=== PATIENT | female | born 1935 ===

== ENCOUNTER 2017-12-09 04:06 | Emergency (ER) | payer OTHER ==
[~2017-12-09] VITALS: Ht 167.6 cm; Wt 81.6 kg
[~2017-12-09 04:06] MED LIST: LEVAQUIN250 MG/10; NORFLEX100MG; ULTRAM50 MG
== END 2017-12-09 17:08 | disposition home or self-care (01) ==
LOC: ER 04:06
DX: N39.0 Urinary tract infection, site not specified (principal)

== ENCOUNTER 2018-01-13 15:43 | Inpatient (IN) | payer OTHER ==
[~2018-01-13] VITALS: Ht 160 cm; Wt 67.1 kg
[2018-01-13] MEDS ORDERED: CLORAZEPATE DIP15 MG (17:07)
[2018-01-13] MEDS ORDERED: GLYBURIDE5 MG (17:07)
[2018-01-13] MEDS ORDERED: SYNTHROID75 MCG (17:08)
[2018-01-13] MEDS ORDERED: AVAPRO75 MG (17:08)
[2018-01-13] MEDS ORDERED: CYMBALTA30 MG (17:08)
[2018-01-13] MEDS ORDERED: SIMVASTATIN20 MG (17:09)
[2018-01-13] MEDS ORDERED: ALL DAY ALLERGY10 M3 (17:10)
[2018-01-13] MEDS ORDERED: LEVEMIR100 UNIT/1 (17:10)
[2018-01-13] MEDS ORDERED: RANITIDINE HCL300 M1 (17:11)
== END 2018-02-15 13:59 | disposition other institution (70) | DRG 871 ==
LOC: ER 15:43 → MEDJ 01-14 10:15
PROC: 3E0F7GC Introduction of Other Therapeutic Substance into Respiratory Tract, Via Natural or Artificial Opening (ICD-10-PCS; 2018-01-14)
PROC: 4A033R1 Measurement of Arterial Saturation, Peripheral, Percutaneous Approach (ICD-10-PCS; 2018-01-14)
PROC: B44HZZZ Ultrasonography of Bilateral Lower Extremity Arteries (ICD-10-PCS; 2018-01-14)
PROC: 05H433Z Insertion of Infusion Device into Left Innominate Vein, Percutaneous Approach (ICD-10-PCS; 2018-01-16)
PROC: B246ZZZ Ultrasonography of Right and Left Heart (ICD-10-PCS; 2018-01-18)
PROC: 3E0436Z Introduction of Nutritional Substance into Central Vein, Percutaneous Approach (ICD-10-PCS; 2018-01-18)
PROC: BW25YZZ Computerized Tomography (CT Scan) of Chest, Abdomen and Pelvis using Other Contrast (ICD-10-PCS; 2018-01-22)
PROC: B44HZZZ Ultrasonography of Bilateral Lower Extremity Arteries (ICD-10-PCS; 2018-01-23)
PROC: 0DH63UZ Insertion of Feeding Device into Stomach, Percutaneous Approach (ICD-10-PCS; principal; 2018-02-01)
DX: A41.9 Sepsis, unspecified organism (principal); J18.9 Pneumonia, unspecified organism; J69.0 Pneumonitis due to inhalation of food and vomit; J45.41 Moderate persistent asthma with (acute) exacerbation; J98.11 Atelectasis; J44.1 Chronic obstructive pulmonary disease with (acute) exacerbation; J44.0 Chronic obstructive pulmonary disease with (acute) lower respiratory infection; B37.49 Other urogenital candidiasis; J90 Pleural effusion, not elsewhere classified; B37.0 Candidal stomatitis; R09.02 Hypoxemia; J20.9 Acute bronchitis, unspecified; E11.65 Type 2 diabetes mellitus with hyperglycemia; Z79.4 Long term (current) use of insulin; I10 Essential (primary) hypertension; Z74.01 Bed confinement status; E03.8 Other specified hypothyroidism; R13.19 Other dysphagia; F03.90 Unspecified dementia, unspecified severity, without behavioral disturbance, psychotic disturbance, mood disturbance, and anxiety; I25.10 Atherosclerotic heart disease of native coronary artery without angina pectoris; H90.A22 Sensorineural hearing loss, unilateral, left ear, with restricted hearing on the contralateral side; F41.8 Other specified anxiety disorders; E87.6 Hypokalemia; K26.9 Duodenal ulcer, unspecified as acute or chronic, without hemorrhage or perforation